=== PATIENT | female | born 1995 | race Caucasian/White ===

== ENCOUNTER 2017-05-19 16:04 | Emergency (ER) | payer BC, OTHER ==
[~2017-05-19] VITALS: Ht 160 cm; Wt 49.7 kg
[2017-05-19 16:14] VITALS: TEMP 36.7; Ht 160 cm; Wt 49.7 kg
[2017-05-19] MEDS ORDERED: SODIUM CHLORIDE 0.9% 1000ML 1,000 ML IV ONE (17:30)
[2017-05-19] MEDS ORDERED: FLUO20CA35 PO (17:35)
[2017-05-19 18:09] VITALS: O2SAT 98
[2017-05-19 18:13] LABS: BASO % 0.3 %; BASO ABS # 0.02 K/uL (0-0.2); EOS % 0.2 %; EOS ABS # 0.01 K/uL (0-0.5); HEMATOCRIT 38.1 % (37-47); HEMOGLOBIN 12.7 g/dL (12.0-16.0); IG# 0.01 K/uL (0.00-0.02); LYMPH % 12.7 %; LYMPH ABS # 0.84 K/uL (1.2-3.4); MEAN CELL VOLUME 82.8 fL (80-100); MEAN CORPUSCULAR HEMOGLOBIN 27.6 pg (25-34); MEAN CORPUSCULAR HGB CONC 33.3 g/dl (32-36); MONO % 5.2 %; MONO ABS # 0.34 K/uL (0.11-0.59); NEUT % 81.4 %; NEUT ABS # 5.38 K/uL (1.4-6.5); PLATELET COUNT 147 K/uL (130-400); RED CELL DISTRIBUTION WIDTH CV 13.5 % (11.5-14.5); RED CELL DISTRIBUTION WIDTH SD 40.6 fL (36.4-46.3)
[2017-05-19 18:30] LABS: ALBUMIN 4.4 gm/dl (3.4-5.0); CALCIUM 8.9 mg/dl (8.5-10.1); CREATININE 0.62 mg/dl (0.60-1.20)
--- NOTE | 2017-05-19 18:37 | DIAGNOSTIC IMAGING REPORT ---
CHEST 2 VIEWS ROUTINE CLINICAL HISTORY: 22 years-old Female presenting with Syncope. TECHNIQUE: PA and lateral views of the chest were obtained. COMPARISON: None. FINDINGS: Cardiomediastinal silhouette normal. Lungs and pleural spaces clear. Osseous structures normal. Upper abdomen normal. IMPRESSION: 1. No acute cardiopulmonary disease. Electronically signed by: Eamon Gallo M.D. 05/19/2017 6:36 PM Dictated Date/Time: 05/19/2017 6:35 PM
[2017-05-19 18:41] LABS: TOTAL PROTEIN 8.1 gm/dl (6.4-8.2)
[2017-05-19 18:56] LABS: INFLUENZA B ANTIGEN Neg for Influ B (NEG)
[2017-05-19 19:25] VITALS: BP 103/60; PULSE 74; O2SAT 98
--- NOTE | 2017-05-20 15:33 | EMERGENCY ROOM VISIT NOTE ---
History First contact with patient: 17:10 Chief Complaint: SYNCOPE (NEAR SYNCOPE) Stated Complaint: FAINTED AT WORK - HIT HEAD ON TABLE Nursing Triage Summary: Pt passed out at work , a/ox4, skin w/c/i, VALLADARES, lungs CTA< answering questions appropriately History of Present Illness The patient is a 22 year old female who presents to the Emergency Room with complaints of syncopal episode occurred at work. The patient states that she was standing in her office after using a computer, felt lightheaded, and reportedly fell backwards, possibly striking her head. The patient did not feel chest pain, chest tightness, palpitations, lightheadedness, or dizziness before or after the event. She does not have a history of seizures, and did not have reports of seizure-like activity around the time of the event. The patient did awaken rather quickly, and was initially evaluated by EMS. The patient now arrives by personal vehicle without significant complaints. She denies recent illness, bleeding, or chance of . She considers herself usually healthy. 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 She rates her current discomfort a 1/10, and is accompanied today by her mother. Review of Systems More than 10 systems were reviewed and otherwise negative with the exception of history of present illness. Past Medical/Surgical History No pertinent chronic medical disease Family History No pertinent family history Social History Smoking Status: Never Smoker Occupation Status: employed Current/Historical Medications Scheduled Fluoxetine (Prozac), 20 MG PO QAM Physical Exam Vital Signs Date Time Temp Pulse Resp B/P (MAP) Pulse Ox O2 Delivery O2 Flow Rate FiO2 05/19/17 19:25 74 18 103/60 98 Room Air 05/19/17 18:37 63 18 100/65 100 Room Air 05/19/17 18:09 98 Room Air 05/19/17 18:01 67 05/19/17 17:55 66 18 102/57 99 Room Air 05/19/17 16:14 36.7 65 17 112/72 100 Room Air Physical Exam VITALS: Vitals are noted on the nurse's note and reviewed by myself. Vital signs stable. GENERAL: Well-developed, well-nourished, white female, who is in no acute distress and resting comfortably. Patient is cooperative with the examination. HEAD: Normocephalic atraumatic. EARS: External ear normal. External auditory canals clear, tympanic membranes pearly voss without erythema or effusion bilaterally. EYES: Pupils equal round and reactive to light and accommodation. Conjunctivae without injection, sclerae without icterus. Extraocular movements intact. NOSE: Patent, turbinates without inflammation or discharge. MOUTH: Mucous membranes moist. Tonsils are not enlarged. Pharynx without erythema, blood, or exudate. Uvula midline. Airway patent. NECK: Supple without nuchal rigidity. No lymphadenopathy. No thyromegaly. Cervical spine is nontender. HEART: Regular rate and rhythm without murmurs gallops or rubs. LUNGS: Clear to auscultation bilaterally without wheezes, rales or rhonchi. No retractions or accessory muscle use. ABDOMEN: Positive normal bowel sounds x 4. Soft, nontender, without masses or organomegaly. No guarding or rebound tenderness. MUSCULOSKELETAL: No muscle atrophy, erythema, or edema noted. Full range of motion without joint tenderness in all extremities. No tenderness to palpation. Normal gait. Strength 5/5 throughout. NEURO: Patient was alert and oriented to person place and time. CN II through XII grossly intact. No focal neurological deficits. Deep tendon reflexes 2+ throughout. SKIN: The skin was without rashes, erythema, edema, or bruising. Capillary refill less than 2 seconds. Medical Decision & Procedures Laboratory Results 05/19/17 18:06 Red Blood Count 4.60, Mean Corpuscular Volume 82.8, Mean Corpuscular Hemoglobin 27.6, Mean Corpuscular Hemoglobin Concent 33.3, Mean Platelet Volume 10.0, Neutrophils (%) (Auto) 81.4, Lymphocytes (%) (Auto) 12.7, Monocytes (%) (Auto) 5.2, Eosinophils (%) (Auto) 0.2, Basophils (%) (Auto) 0.3, Neutrophils # (Auto) 5.38, Lymphocytes # (Auto) 0.84, Monocytes # (Auto) 0.34, Eosinophils # (Auto) 0.01, Basophils # (Auto) 0.02 05/19/17 18:06 Test 05/19/17 17:40 05/19/17 18:06 05/19/17 18:28 Urine Color YELLOW Urine Appearance CLEAR (CLEAR) Urine pH 5.0 (4.5-7.5) Urine Specific Ponce 1.011 (1.000-1.030) Urine Protein NEG (NEG) Urine Glucose (UA) NEG (NEG) Urine Ketones 1+ (NEG) Urine Occult Blood NEG (NEG) Urine Nitrite NEG (NEG) Urine Bilirubin NEG (NEG) Urine Urobilinogen NEG (NEG) Urine Leukocyte Esterase NEG (NEG) Urine Test NEG (NEG) Influenza Type A Antigen Neg for Influ A (NEG) Influenza Type B Antigen Neg for Influ B (NEG) White Blood Count 6.60 K/uL (4.8-10.8) Red Blood Count 4.60 M/uL (4.2-5.4) Hemoglobin 12.7 g/dL (12.0-16.0) Hematocrit 38.1 % (37-47) Mean Corpuscular Volume 82.8 fL (80-100) Mean Corpuscular Hemoglobin 27.6 pg (25-34) Mean Corpuscular Hemoglobin Concent 33.3 g/dl (32-36) Platelet Count 147 K/uL (130-400) Mean Platelet Volume 10.0 fL (7.4-10.4) Neutrophils (%) (Auto) 81.4 % Lymphocytes (%) (Auto) 12.7 % Monocytes (%) (Auto) 5.2 % Eosinophils (%) (Auto) 0.2 % Basophils (%) (Auto) 0.3 % Neutrophils # (Auto) 5.38 K/uL (1.4-6.5) Lymphocytes # (Auto) 0.84 K/uL (1.2-3.4) Monocytes # (Auto) 0.34 K/uL (0.11-0.59) Eosinophils # (Auto) 0.01 K/uL (0-0.5) Basophils # (Auto) 0.02 K/uL (0-0.2) RDW Standard Deviation 40.6 fL (36.4-46.3) RDW Coefficient of Variation 13.5 % (11.5-14.5) Immature Granulocyte % (Auto) 0.2 % Immature Granulocyte # (Auto) 0.01 K/uL (0.00-0.02) Anion Gap 6.0 mmol/L (3-11) Est Creatinine Clear Calc Drug Dose 109.8 ml/min Estimated GFR () 146.3 Estimated GFR (Non- 126.2 BUN/Creatinine Ratio 13.5 (10-20) Calcium Level 8.9 mg/dl (8.5-10.1) Magnesium Level 2.3 mg/dl (1.8-2.4) Total Bilirubin 0.7 mg/dl (0.2-1) Aspartate Amino Transf (AST/SGOT) 24 U/L (15-37) Alanine Aminotransferase (ALT/SGPT) 39 U/L (12-78) Alkaline Phosphatase 72 U/L (45-117) Total Protein 8.1 gm/dl (6.4-8.2) Albumin 4.4 gm/dl (3.4-5.0) Globulin 3.7 gm/dl (2.5-4.0) Albumin/Globulin Ratio 1.2 (0.9-2) Thyroid Stimulating Hormone (TSH) 1.350 uIu/ml (0.300-4.500) Bedside Troponin I < 0.030 ng/ml (0-0.045) Medications Administered Medications (Trade) Dose Ordered Sig/Margarita Route Start Time Stop Time Status Last Admin Dose Admin Sodium Chloride 1,000 ml @ 999 mls/hr Q1H1M ONCE IV 05/19/17 17:30 05/19/17 18:30 DC 05/19/17 17:59 999 MLS/HR ED Course Physical exam and history were performed. Nursing notes, EMR, and Medication List were personally reviewed. Patient appears to have had a syncopal versus fainting episode earlier today, roughly 2 hours prior to arrival. On examination the patient does not appear toxic. EKG was performed was read by myself as normal sinus rhythm at [address] elevation or ischemia. No previous EKGs available for comparison. IV access was established and labs were obtained. The patient was hydrated with normal saline. She was placed on a telecom coordinator. The patient's blood work is as above and was reviewed. She does not have a significantly elevated white blood cell count, worsening of bandemia, or significant electrolyte imbalance. She is not . Urine is without evidence of infection. Troponin 1 is negative. TSH is euthyroid state. The patient remained in normal sinus rhythm while on the telecom coordinator. Overall the patient did not have any return or worsening of her symptoms while here in the department. She appears well and is without chest pain or other symptoms at this time. I suspect that her symptoms may be related to some dehydration, or possible fainting episode. I recommend that she follow with her primary care physician in the next few days for recheck of her condition. We did discuss the possibility of needing a Holter or event monitor in the future. She was certainly invited back to the ER with any new, worsening, or concerning symptoms. She was discharged home under the care of her mother and rated her discomfort a 0/10 at the time of departure. The chart was completed utilizing [employer] Voice Recognition Software. Grammatical errors, random word insertions, pronoun errors, and incomplete sentences are an occasional consequence of this system due to software limitations, ambient noise, and hardware issues. Any formal questions or concerns about the content, text, or information contained within the body of this dictation should be directly addressed to the provider for clarification. . Medical Decision Differential diagnosis: Etiologies such as vasovagal event, infection, hypoglycemia, electrolyte abnormalities, cardiac sources, intracerebral event, toxicologic, neurologic, as well as others were entertained. Blood Pressure Screening Patient's blood pressure: Normal blood pressure Impression Primary Impression: Syncope and collapse Departure Information Dispostion Home / Self-Care Condition [employer] HOME CARE DOCUMENTATION FORM, IMPORTANT VISIT INFORMATION Patient Instructions My [facility] Additional Instructions You were seen and evaluated today on an emergency basis only. This is not a substitute for, or an effort to provide, complete comprehensive medical care. It is not possible to recognize and treat all injuries or illnesses in a single emergency department visit. For this reason it is recommended that you followup with your primary care physician next week for recheck. Treatment plan fluids and remain hydrated. You are welcome to return to the emergency department anytime with new, worsening, or concerning symptoms.
== END 2017-05-19 19:46 | disposition home or self-care (01) ==
LOC: C.EDB 16:07 → C.EDC 19:46
DX: R55 Syncope and collapse (principal)